=== PATIENT | female | born 1945 | race Hispanic/Latino ===

== ENCOUNTER 2018-11-12 10:57 | Emergency (ER) | payer MEDICARE ==
[2018-11-12 11:50] LABS: INR 1.5 (0.87-1.13); Mean Corpuscular HGB Conc 29 % (30-34); Mean Corpuscular Volume 92 fl (79-97); Platelet Count 215 K/mm3 (140-440); Red Blood Count 4.26 M/mm3 (3.65-5.03)
[2018-11-12 11:51] LABS: Hematocrit 39.3 % (30.3-42.9); Hemoglobin 11.5 gm/dl (10.1-14.3); Partial Thromboplastin Time 51.1 Sec. (24.2-36.6); Red Cell Distribution Width 20.8 % (13.2-15.2)
[2018-11-12 11:59] LABS: Calcium 8.3 mg/dL (8.4-10.2)
[2018-11-12] MEDS ORDERED: LEVOPHED 8 MG in NACL 0.9% 250ML 242 ML IV SCH (12:00)
[2018-11-12 12:14] LABS: Chol/HDL Ratio 6.2 %
[2018-11-12] MEDS ORDERED: ADRENALIN ONE (12:15)
[2018-11-12] MEDS ORDERED: LEVOPHED IV ONE (12:15)
[2018-11-12] MEDS ORDERED: NACL 0.9% 1000 ML IV ONE (12:33)
[2018-11-12] MEDS ORDERED: LEVAQUIN 750MG/150ML 750 MG/150 ML BAG IV ONE (12:34)
[2018-11-12 12:52] VITALS: BP 95/39
[2018-11-12 13:19] LABS: Basophils % (Manual) 0 % (0.0-1.8); Myelocytes # (Manual) 0.3 K/mm3; Total Cells Counted 100
--- NOTE | 2018-11-12 13:20 | XRay Report ---
AP CHEST: HISTORY: Cardiac arrest No comparison. A right mainstem bronchus intubation is identified. Consider retraction of the endotracheal tube by 4-5 cm. Cardiomegaly and pulmonary venous congestion is evident. Segmental atelectasis is noted in the perihilar regions bilaterally. No large pleural effusion or pneumothorax. IMPRESSION: Right mainstem bronchus intubation. Cardiomegaly and pulmonary venous congestion. Mild bilateral atelectatic changes.
[2018-11-12 13:21] LABS: Anisocytosis 1+; Ovalocytes 1+; Platelet Estimate Consistent w Auto; Poikilocytosis 1+
--- NOTE | 2018-11-12 14:18 | Emergency Department Report ---
ED CPR HPI - General Chief Complaint: Cardiac Arrest/CPR Stated Complaint: CARDIAC ARREST Source: EMS Mode of arrival: Stretcher Limitations: Other - History of Present Illness Initial Comments: Patient presents to the emergency department in cardiac arrest. Per EMS it was a witnessed arrest at the alf. The patient was just talking to one of the workers at the alf when he left for 5 minutes and upon returning the patient coded. Place: NM/SNF Bystander CPR Performed: Yes AED Applied by Bystander/Systems Testing Laboratory Technician: Yes Shock Advised: No Initial Findings in the Field: unresponsive ROSC in the Field: No Associated Injuries: No Associated Symptoms: other (unknown) Treatments Prior to Arrival: intubation, BMV, epinephrine mgs # - Related Data Allergies Allergy/AdvReac Type Severity Reaction Status Date / Time adhesive Allergy Unknown Verified 11/12/18 11:07 clindamycin Allergy Unknown Verified 11/12/18 11:07 codeine Allergy Unknown Verified 11/12/18 11:07 Penicillins Allergy Unknown Verified 11/12/18 11:07 ED Review of Systems ROS: Stated complaint: CARDIAC ARREST Other details as noted in HPI Comment: Unobtainable due to pts medical conditions ED Past Medical Hx - Past Medical History Previous Medical History?: Yes Hx Hypertension: Yes Hx Congestive Heart Failure: Yes 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 afib - Surgical History Additional Surgical History: unknown - Social History Smoking Status: Unknown if ever smoked ED Physical Exam - General Limitations: Other (Cardiac Arrest ) General appearance: other (Intubated/chest compressions) - Head Head exam: Present: atraumatic, normocephalic - Eye Eye exam: Present: other (no corneal reflex, dilated pupils) - ENT ENT exam: Present: mucous membranes moist - Neck Neck exam: Present: normal inspection - Respiratory Respiratory exam: Present: other (equal breath sounds with bagging) - Cardiovascular Cardiovascular Exam: Present: other (pulseless) - GI/Abdominal GI/Abdominal exam: Present: soft. Absent: distended - Extremities Exam Extremities exam: Present: other (pitting edema bilaterally) - Neurological Exam Neurological exam: Present: other (GCS of 3) - Psychiatric Psychiatric exam: Present: other (not able to assess due to the patient's condition) - Skin Skin exam: Present: warm, dry, other (Candi corporis present) ED Course Vital Signs 11/12/18 11/12/18 11/12/18 10:58 11:00 11:01 Temperature Pulse Rate 98 H 119 H 98 H Respiratory 13 114 H 15 Rate Blood Pressure 136/114 O2 Sat by Pulse 96 Oximetry 11/12/18 11/12/18 11/12/18 11:05 11:10 11:16 Temperature Pulse Rate 107 H 94 H 76 Respiratory 12 9 L 20 Rate Blood Pressure 136/114 136/114 113/81 O2 Sat by Pulse 74 L 98 95 Oximetry 11/12/18 11/12/18 11/12/18 11:20 11:24 11:26 Temperature 96 F L Pulse Rate 62 155 H Respiratory 20 92 H Rate Blood Pressure 66/39 86/64 O2 Sat by Pulse Oximetry 11/12/18 11/12/18 11/12/18 11:30 11:36 11:40 Temperature Pulse Rate 100 H 112 H 106 H Respiratory 79 H 11 L 18 Rate Blood Pressure 99/34 130/94 108/63 O2 Sat by Pulse 98 Oximetry 11/12/18 11/12/18 11/12/18 11:46 11:50 11:55 Temperature Pulse Rate 92 H 83 78 Respiratory 20 20 20 Rate Blood Pressure 88/57 70/43 O2 Sat by Pulse 92 91 Oximetry 11/12/18 11/12/18 11/12/18 12:00 12:05 12:11 Temperature Pulse Rate 77 77 72 Respiratory 20 20 20 Rate Blood Pressure 76/46 76/46 63/37 O2 Sat by Pulse 92 90 91 Oximetry 11/12/18 11/12/18 11/12/18 12:15 12:21 12:25 Temperature Pulse Rate 74 79 71 Respiratory 20 20 21 Rate Blood Pressure 61/31 62/20 72/37 O2 Sat by Pulse 90 91 Oximetry 11/12/18 11/12/18 11/12/18 12:31 12:35 12:41 Temperature Pulse Rate 71 155 H 104 H Respiratory 20 98 H 16 Rate Blood Pressure 72/37 72/37 95/39 O2 Sat by Pulse 95 98 98 Oximetry 11/12/18 12:45 Temperature Pulse Rate 105 H Respiratory Rate Blood Pressure O2 Sat by Pulse Oximetry - Central Line Placement Right Femoral Consent Obtained: emergent situation Time Out Performed: Yes Patient Placed on Monitor/Pulse Ox: Yes Prep: mask, gown, gloves Central Line Prep: Chlorhexidine scrub Ultrasound Used for Placement: No Central Line Lumen Inserted: triple Central Line Position: good blood return, all ports aspirated, flus, sutured in place with 2-0 Dressing Applied: Tegaderm Patient Tolerated Procedure: well Complications: none ED Medical Decision Making - Lab Data Result diagrams: 11/12/18 11:20 11/12/18 11:20 Lab Results 11/12/18 11/12/18 11/12/18 Range/Units 11:07 11:20 11:20 WBC 14.1 H (4.5-11.0) K/mm3 RBC 4.26 (3.65-5.03) M/mm3 Hgb 11.5 (10.1-14.3) gm/dl Hct 39.3 (30.3-42.9) % MCV 92 (79-97) fl MCH 27 L (28-32) pg MCHC 29 L (30-34) % RDW 20.8 H (13.2-15.2) % Plt Count 215 (140-440) K/mm3 Lymph % (Auto) Lease Out Man Hitchcock % (Auto) Lease Out Man Eos % (Auto) Lease Out Man Baso % (Auto) Lease Out Man Lymph # Lease Out Man Hitchcock # Lease Out Man Eos # Lease Out Man Baso # Lease Out Man Add Manual Diff Complete Total Counted 100 Seg Neutrophils % Lease Out Man Seg Neuts % (Manual) 69.0 (40.0-70.0) % Band Neutrophils % 0 % Lymphocytes % (Manual) 11.0 L (13.4-35.0) % Reactive Lymphs % (Man) 0 % Monocytes % (Manual) 3.0 (0.0-7.3) % Eosinophils % (Manual) 15.0 H (0.0-4.3) % Basophils % (Manual) 0 (0.0-1.8) % Metamyelocytes % 0 % Myelocytes % 2.0 % Promyelocytes % 0 % Blast Cells % 0 % Nucleated RBC % Not Reportable Seg Neutrophils # Lease Out Man Seg Neutrophils # Man 9.7 H (1.8-7.7) K/mm3 Band Neutrophils # 0.0 K/mm3 Lymphocytes # (Manual) 1.6 (1.2-5.4) K/mm3 Abs React Lymphs (Man) 0.0 K/mm3 Monocytes # (Manual) 0.4 (0.0-0.8) K/mm3 Eosinophils # (Manual) 2.1 H (0.0-0.4) K/mm3 Basophils # (Manual) 0.0 (0.0-0.1) K/mm3 Metamyelocytes # 0.0 K/mm3 Myelocytes # 0.3 K/mm3 Promyelocytes # 0.0 K/mm3 Blast Cells # 0.0 K/mm3 WBC Morphology Not Reportable Hypersegmented Neuts Not Reportable Hyposegmented Neuts Not Reportable Hypogranular Neuts Not Reportable Smudge Cells Not Reportable Toxic Granulation Not Reportable Toxic Vacuolation Not Reportable Dohle Bodies Not Reportable Pelger-Huet Anomaly Not Reportable Julio César Rods Not Reportable Platelet Estimate Consistent w auto Clumped Platelets Not Reportable Plt Clumps, EDTA Not Reportable Large Platelets Not Reportable Giant Platelets Not Reportable Platelet Satelliting Not Reportable Plt Morphology Comment Not Reportable RBC Morphology Not Reportable Dimorphic RBCs Not Reportable Polychromasia Not Reportable Hypochromasia Not Reportable Poikilocytosis 1+ Anisocytosis 1+ Microcytosis Not Reportable Macrocytosis Not Reportable Spherocytes Not Reportable Pappenheimer Bodies Not Reportable Sickle Cells Not Reportable Target Cells Not Reportable Tear Drop Cells Not Reportable Ovalocytes 1+ Helmet Cells Not Reportable Ness-Storden Bodies Not Reportable [place] Rings Not Reportable [place] Cells Not Reportable Bite Cells Not Reportable Crenated Cell Not Reportable Elliptocytes Not Reportable Acanthocytes (Spur) Not Reportable Rouleaux Not Reportable Hemoglobin C Crystals Not Reportable Schistocytes Not Reportable Malaria parasites Not Reportable Kuldeep Bodies Not Reportable Hem Pathologist Commnt No PT (12.2-14.9) Sec. INR (0.87-1.13) APTT (24.2-36.6) Sec. POC ABG pH (7.35-7.45) POC ABG pCO2 (35-45) POC ABG pO2 (80-105) POC ABG HCO3 POC ABG Total CO2 POC ABG O2 Sat POC ABG Base Excess FiO2 % Sodium 136 L (137-145) mmol/L Potassium 4.4 (3.6-5.0) mmol/L Chloride 91.6 L (98-107) mmol/L Carbon Dioxide 21 L (22-30) mmol/L Anion Gap 28 mmol/L BUN 42 H (7-17) mg/dL Creatinine 3.2 H (0.7-1.2) mg/dL Estimated GFR 14 ml/min BUN/Creatinine Ratio 13 % Glucose 141 H (65-100) mg/dL POC Glucose 163 H (70-105) Calcium 8.3 L (8.4-10.2) mg/dL Phosphorus (2.5-4.5) mg/dL Magnesium (1.7-2.3) mg/dL Troponin T 0.066 H (0.00-0.029) ng/mL NT-Pro-B Natriuret Pep (0-900) pg/mL Triglycerides 163 H (2-149) mg/dL Cholesterol 186 (50-199) mg/dL LDL Cholesterol Direct 136 H (50-130) mg/dL HDL Cholesterol 30 L (40-59) mg/dL Cholesterol/HDL Ratio 6.20 % 11/12/18 11/12/18 11/12/18 Range/Units 11:20 11:20 11:44 WBC (4.5-11.0) K/mm3 RBC (3.65-5.03) M/mm3 Hgb (10.1-14.3) gm/dl Hct (30.3-42.9) % MCV (79-97) fl MCH (28-32) pg MCHC (30-34) % RDW (13.2-15.2) % Plt Count (140-440) K/mm3 Lymph % (Auto) Hitchcock % (Auto) Eos % (Auto) Baso % (Auto) Lymph # Hitchcock # Eos # Baso # Add Manual Diff Total Counted Seg Neutrophils % Seg Neuts % (Manual) (40.0-70.0) % Band Neutrophils % % Lymphocytes % (Manual) (13.4-35.0) % Reactive Lymphs % (Man) % Monocytes % (Manual) (0.0-7.3) % Eosinophils % (Manual) (0.0-4.3) % Basophils % (Manual) (0.0-1.8) % Metamyelocytes % % Myelocytes % % Promyelocytes % % Blast Cells % % Nucleated RBC % Seg Neutrophils # Seg Neutrophils # Man (1.8-7.7) K/mm3 Band Neutrophils # K/mm3 Lymphocytes # (Manual) (1.2-5.4) K/mm3 Abs React Lymphs (Man) K/mm3 Monocytes # (Manual) (0.0-0.8) K/mm3 Eosinophils # (Manual) (0.0-0.4) K/mm3 Basophils # (Manual) (0.0-0.1) K/mm3 Metamyelocytes # K/mm3 Myelocytes # K/mm3 Promyelocytes # K/mm3 Blast Cells # K/mm3 WBC Morphology Hypersegmented Neuts Hyposegmented Neuts Hypogranular Neuts Smudge Cells Toxic Granulation Toxic Vacuolation Dohle Bodies Pelger-Huet Anomaly Julio César Rods Platelet Estimate Clumped Platelets Plt Clumps, EDTA Large Platelets Giant Platelets Platelet Satelliting Plt Morphology Comment RBC Morphology Dimorphic RBCs Polychromasia Hypochromasia Poikilocytosis Anisocytosis Microcytosis Macrocytosis Spherocytes Pappenheimer Bodies Sickle Cells Target Cells Tear Drop Cells Ovalocytes Helmet Cells Ness-Storden Bodies [place] Yousif Cells Bite Cells Crenated Cell Elliptocytes Acanthocytes (Spur) Rouleaux Hemoglobin C Crystals Schistocytes Malaria parasites Kuldeep Bodies Hem Pathologist Commnt PT 18.5 H (12.2-14.9) Sec. INR 1.50 H (0.87-1.13) APTT 51.1 H (24.2-36.6) Sec. POC ABG pH 7.077 L (7.35-7.45) POC ABG pCO2 49.4 H (35-45) POC ABG pO2 214 H (80-105) POC ABG HCO3 14.5 POC ABG Total CO2 16 POC ABG O2 Sat 99 POC ABG Base Excess -15 FiO2 100 % Sodium (137-145) mmol/L Potassium (3.6-5.0) mmol/L Chloride (98-107) mmol/L Carbon Dioxide (22-30) mmol/L Anion Gap mmol/L BUN (7-17) mg/dL Creatinine (0.7-1.2) mg/dL Estimated GFR ml/min BUN/Creatinine Ratio % Glucose (65-100) mg/dL POC Glucose (70-105) Calcium (8.4-10.2) mg/dL Phosphorus 6.20 H (2.5-4.5) mg/dL Magnesium 2.20 (1.7-2.3) mg/dL Troponin T (0.00-0.029) ng/mL NT-Pro-B Natriuret Pep 17769 H (0-900) pg/mL Triglycerides (2-149) mg/dL Cholesterol (50-199) mg/dL LDL Cholesterol Direct (50-130) mg/dL HDL Cholesterol (40-59) mg/dL Cholesterol/HDL Ratio % - Radiology Data Radiology results: report reviewed [facility] [address] [place] [address] XRay Report Signed Patient: SANJAY MCDOWELL MR#: [id number] : 1945 Acct:[id number] Age/Sex: 73 / F ADM Date: 11/12/18 Loc: ED Attending Dr: Ordering Physician: KENRICK GUTHRIE MD Date of Service: 11/12/18 Procedure(s): XR chest 1V ap Accession Number(s): [id number] cc: KENRICK GUTHRIE MD Fluoro Time In Minutes: AP CHEST: HISTORY: Cardiac arrest No comparison. A right mainstem bronchus intubation is identified. Consider retraction of the endotracheal tube by 4-5 cm. Cardiomegaly and pulmonary venous congestion is evident. Segmental atelectasis is noted in the perihilar regions bilaterally. No large pleural effusion or pneumothorax. IMPRESSION: Right mainstem bronchus intubation. Cardiomegaly and pulmonary venous congestion. Mild bilateral atelectatic changes. Transcribed By: TTR Dictated By: AUDREY EDGAR JR, MD Electronically Authenticated By: AUDREY EDGAR JR, MD Signed Date/Time: 11/12/181316 DD/ 15 TD/TT: 11/12/181316 - Medical Decision Making Please see code sheet for further detail Patient arrived a PEA CPR in progress To arouse the patient was protocol were done with one being a PEA and asystole with a return of spontaneous circulation at 1102 Respiratory spontaneous circulation the patient's blood pressure began to increase and the patient was placed on a pressor at 1124 CALLED to the room again because the patient lost pulses Patient remained without pulses until 1131 when she regained spontaneous circulation Patient lost pulses again at 1133 after the start of a second pressor dopamine at this, would speak to the family about their wishes and the family returned to the room while chest compressions were being done at 1255 over the check was done patient was pulseless the patient's sister as well as to her jaw all measures and at this time the pressors were stopped and CPR was stopped as well and the patient was asystole, was 1255 please see code sheet for details Of note the patient loosely changed hospice care and was switched from DNR to fill code Critical Care Time: Yes Critical care time in (mins) excluding proc time.: 45 Critical care attestation.: If time is entered above; I have spent that time in minutes in the direct care of this critically ill patient, excluding procedure time. Critical Care Time: Time spent managing multiple rounds of ACLS with return of spontaneous circulation and pressor initiation Time also spent speaking with the family in detail about the patient's condition ED Disposition Clinical Impression: Cardiac arrest Disposition: DC-20 Is pt being admited?: No Condition: Stable Referrals: PRIMARY CARE, [Primary Care Provider] - 3-5 Days Time of Disposition: 12:55
== END 2018-11-12 14:00 ==
LOC: ED 10:57
DX: I46.9 Cardiac arrest, cause unspecified (principal)
CPT/HCPCS: 36415; 36556; 71045; 80048; 80061; 82803; 82962; 83735; 83880; 84100; 84484; 85007; 85025; 85610; 85730; 92950; 93005; 93010; 96365; 96366; 99291; J0171; 94002; J7050